=== PATIENT | male | born 1960 | race Caucasian/White ===

== ENCOUNTER → 2016-10-15 | Outpatient (CLI) | payer BC ==
[~2016-10-15] MED LIST: ASPIR-LOW81 MG PO; COZAAR 25MG TAB25 MG GT; COZAAR 25MG TAB25 MG PO; LIPITOR TAB 2020 MG PO; METOPROLOL SUCC25 MG PO; PLAVIX 75 MG TA75 MG PO; TYLENOL325 MG PO
== END ==
LOC: HEART 5 08:00
DX: I25.10 Atherosclerotic heart disease of native coronary artery without angina pectoris (principal)
CPT/HCPCS: 78452; A9502; J2785

== ENCOUNTER → 2016-10-19 | Outpatient (CLI) | payer BC | LOC: CARD REHAB 11:00 | DX: Z48.812 Encounter for surgical aftercare following surgery on the circulatory system (principal) ==

== ENCOUNTER 2020-09-13 15:16 | Emergency (ER) | payer BC, OTHER ==
[~2020-09-13 15:16] MED LIST changes: +ASPIRIN81 MG PO; +BUSPIRONE HCL5 MG PO; +COLCHICINE 0.60.6 MG PO; +COLCHICINE0.6 MG PO; +COZAAR25 MG PO; +LIPITOR20 MG PO; +NITROSTAT0.4 MG SL; +TOPROL XL 25 MG25 MG PO; +VITAMIN D31250 MCG PO; +ZYLOPRIM 300 M300 MG PO
[2020-09-13] MEDS ORDERED: CYCLOBENZAPRINE5 MG PO (19:46)
[2020-09-13] MEDS ORDERED: IBUPROFEN800 MG PO (19:46)
== END 2020-09-13 20:48 | disposition home or self-care (01) ==
LOC: ER1 15:16
DX: M25.552 Pain in left hip (principal); M54.5 Low back pain; I25.2 Old myocardial infarction; I10 Essential (primary) hypertension; Z88.0 Allergy status to penicillin; Z88.2 Allergy status to sulfonamides; Z88.1 Allergy status to other antibiotic agents; Z79.899 Other long term (current) drug therapy
CPT/HCPCS: 72131; 73502; 96372; 99284; J1885

== ENCOUNTER 2021-04-01 14:51 | Inpatient (IN) | payer BC ==
[~2021-04-01] VITALS: Ht 185.4 cm; Wt 113.4 kg
[~2021-04-01 14:51] MED LIST changes: -ASPIRIN81 MG PO; +CYCLOBENZAPRINE5 MG PO; +IBUPROFEN800 MG PO; -NITROSTAT0.4 MG SL; -TOPROL XL 25 MG25 MG PO; -VITAMIN D31250 MCG PO
[2021-04-01 16:46] LABS: HEMOGLOBIN 12.2 gm/dl (14.0-17.5); RED BLOOD COUNT 4.07 M/UL (4.20-5.50); WHITE BLOOD COUNT 11.6 K/UL (4.5-11.0)
[2021-04-01 17:36] LABS: BUN/CREATININE RATIO 15 (0-10)
[2021-04-02 04:27] LABS: HEMOGLOBIN 10.8 gm/dl (14.0-17.5)
[2021-04-02 04:50] LABS: BUN/CREATININE RATIO 17 (0-10); RED BLOOD COUNT 3.64 M/UL (4.20-5.50); WHITE BLOOD COUNT 5.7 K/UL (4.5-11.0)
[2021-04-02] MEDS ORDERED: ASPIRIN81 MG PO (06:33)
[2021-04-02] MEDS ORDERED: METOPROLOL TART25 MG PO (06:34)
[2021-04-02] MEDS ORDERED: VITAMIN D31250 MCG PO (10:33)
[2021-04-02] MEDS ORDERED: NITROSTAT0.4 MG SL (10:34)
[2021-04-02] MEDS ORDERED: CRESTOR40 MG PO (12:15)
[2021-04-02] MEDS ORDERED: IBU800 MG PO (12:16)
[2021-04-03 07:33] LABS: HEMOGLOBIN 11.2 gm/dl (14.0-17.5); RED BLOOD COUNT 3.8 M/UL (4.20-5.50)
[2021-04-03 07:45] LABS: WHITE BLOOD COUNT 4.1 K/UL (4.5-11.0)
[2021-04-03 07:50] LABS: BUN/CREATININE RATIO 18 (0-10)
[2021-04-04 04:30] LABS: HEMOGLOBIN 10.4 gm/dl (14.0-17.5); RED BLOOD COUNT 3.58 M/UL (4.20-5.50); WHITE BLOOD COUNT 3.9 K/UL (4.5-11.0)
[2021-04-04 05:00] LABS: BUN/CREATININE RATIO 15 (0-10)
[2021-04-05 09:34] LABS: RED BLOOD COUNT 4.54 M/UL (4.20-5.50); WHITE BLOOD COUNT 5.1 K/UL (4.5-11.0)
[2021-04-05 09:35] LABS: HEMOGLOBIN 12.5 gm/dl (14.0-17.5)
[2021-04-05 09:58] LABS: BUN/CREATININE RATIO 11 (0-10)
[2021-04-05] MEDS ORDERED: FLAGYL500 MG PO (10:30)
[2021-04-05] MEDS ORDERED: LEVOFLOXACIN500 MG PO (10:30)
== END 2021-04-05 16:25 | disposition home or self-care (01) | DRG 871 ==
LOC: ER1 14:51 → CDU 21:38 → MED SURG 4 21:38
PROVIDERS: Internal Medicine; Physician Assistant Medical; ADMIT Internal Medicine
DX: A41.9 Sepsis, unspecified organism (principal); J96.01 Acute respiratory failure with hypoxia; A09 Infectious gastroenteritis and colitis, unspecified; C18.7 Malignant neoplasm of sigmoid colon; K57.32 Diverticulitis of large intestine without perforation or abscess without bleeding; Z20.822 Contact with and (suspected) exposure to COVID-19; E66.9 Obesity, unspecified; Z96.642 Presence of left artificial hip joint; E78.5 Hyperlipidemia, unspecified; I11.9 Hypertensive heart disease without heart failure; I25.10 Atherosclerotic heart disease of native coronary artery without angina pectoris; Z95.5 Presence of coronary angioplasty implant and graft; Z79.01 Long term (current) use of anticoagulants; Z79.82 Long term (current) use of aspirin; Z88.0 Allergy status to penicillin; Z88.1 Allergy status to other antibiotic agents; Z88.2 Allergy status to sulfonamides; Z68.32 Body mass index [BMI] 32.0-32.9, adult
CPT/HCPCS: 36415; 80048; 80053; 81001; 83605; 83735; 85025; 85027; 87040; 93005; 96374; 96375; 99285; C9113; G0378; J1335; J1650; J1956; J2270; J2405; J7030; Q9967; U0002

== ENCOUNTER → 2021-04-28 | Outpatient (CLI) | payer BC ==
[~2021-04-28] MED LIST changes: +ASPIRIN81 MG PO; +CRESTOR40 MG PO; +FLAGYL500 MG PO; +IBU800 MG PO; +LEVOFLOXACIN500 MG PO; +METOPROLOL TART25 MG PO; +NITROSTAT0.4 MG SL; +VITAMIN D31250 MCG PO
== END ==
LOC: EXRD 12:48
DX: R10.13 Epigastric pain (principal); K59.00 Constipation, unspecified
CPT/HCPCS: 74019

== ENCOUNTER → 2021-05-07 | Outpatient (CLI) | payer BC ==
[2021-05-07 14:06] LABS: HEMOGLOBIN 10.6 gm/dl (14.0-17.5); RED BLOOD COUNT 3.89 M/UL (4.20-5.50); WHITE BLOOD COUNT 6.6 K/UL (4.5-11.0)
[2021-05-07 14:31] LABS: BUN/CREATININE RATIO 24 (0-10)
== END ==
LOC: LAB 12:27
PROVIDERS: Internal Medicine Gastroenterology
DX: Z00.00 Encounter for general adult medical examination without abnormal findings (principal); D64.9 Anemia, unspecified; A04.1 Enterotoxigenic Escherichia coli infection
CPT/HCPCS: 36415; 80053; 82728; 83540; 84100; 84134; 85025

== ENCOUNTER 2021-05-12 15:16 | Inpatient (IN) | payer BC ==
[~2021-05-12] VITALS: Ht 182.9 cm; Wt 92.5 kg
[2021-05-12 15:59] LABS: RED BLOOD COUNT 3.34 M/UL (4.20-5.50); WHITE BLOOD COUNT 4.8 K/UL (4.5-11.0)
[2021-05-12 16:21] LABS: BUN/CREATININE RATIO 25 (0-10)
[2021-05-12] MEDS ORDERED: APRISO0.375 GM PO (16:45)
[2021-05-12] MEDS ORDERED: ASPIRIN81 MG PO (16:46)
[2021-05-13 06:32] LABS: HEMOGLOBIN 7.5 gm/dl (14.0-17.5)
[2021-05-13 06:36] LABS: RED BLOOD COUNT 2.84 M/UL (4.20-5.50); WHITE BLOOD COUNT 3.2 K/UL (4.5-11.0)
--- NOTE | 2021-05-13 22:56 | NUR ---
PT STATED PAIN, ORDER FOR MED OBTAINED VIA DR. JULIEN, SEE PROVIDER NOTE. WHEN ATTEMPTING TO ADMINISTER MED, PT REFUSED. ALL 4 MG OF MORPHINE WASTED AND WITNESSED BY AMY VILA RN.
[2021-05-14 04:00] LABS: RED BLOOD COUNT 4.14 M/UL (4.20-5.50)
[2021-05-14 04:33] LABS: BUN/CREATININE RATIO 21 (0-10)
[2021-05-15 09:00] LABS: HEMOGLOBIN 9.7 gm/dl (14.0-17.5)
[2021-05-15 09:03] LABS: RED BLOOD COUNT 3.61 M/UL (4.20-5.50); WHITE BLOOD COUNT 10.9 K/UL (4.5-11.0)
[2021-05-15 09:19] LABS: BUN/CREATININE RATIO 26 (0-10)
--- NOTE | 2021-05-16 00:32 | NUR ---
DR. JULIEN NOTIFIED OF EMESIS THAT WAS PROJECTILE IN NATURE AND APPEARED TO BE BILE-LIKE. SEE PROVIDER NOTE FOR MORE INFO. 16 FR NG TUBE ATTEMPTED TO EACH NOSTRIL WITH NO SUCCESS. PT DID NOT TOLERATE WELL. 10 FR TUBE PLACED TO RIGHT NARE WITH MINIMAL DIFFICULTY. PT STATES RELIEVED PRESSURE IN STOMACH WITH NO MORE ISSUES NOTED ATT. WCTM
[2021-05-16 08:58] LABS: BUN/CREATININE RATIO 33 (0-10)
--- NOTE | 2021-05-22 10:18 | NUR ---
RECEIVED ORDERS FROM TERRENCE JULIEN TO PLACE WOUND VAC BLACK FOAM AT 120 SUCTION
--- NOTE | 2021-05-22 14:41 | NUR ---
wound vac placed with black foam at 120 suction
[2021-05-23 11:10] LABS: HEMOGLOBIN 10.1 gm/dl (14.0-17.5); RED BLOOD COUNT 3.78 M/UL (4.20-5.50); WHITE BLOOD COUNT 15.1 K/UL (4.5-11.0)
--- NOTE | 2021-05-23 12:20 | NUR ---
contacted provider solitario rodriguez about increased output in patient woundvac at 1000 and suspicion for low blood count with serosanginous drainage at 350ml since placement yesterday 05/22/21 at 1400. at this time dr. rodriguez is not concerned and explained to me he feels the patient is doing well this morning on his rounds and the physiology of his current condition. no further orders at this time. Called back at a later time around 1045 with patient complaints of dizzy, cold sweats, pallor with serosanginous drinage in woundvac. vitals signs were obtained 80/61 with heart rate of 130. patient was weak at this time and unable to ambulate. orders received to stop dvt prophylaxis, change woundvac settings to 100 intermittent suction and give saline over one hour after the ordered cbc results.
[2021-05-24 10:12] LABS: HEMOGLOBIN 9.5 gm/dl (14.0-17.5); RED BLOOD COUNT 3.53 M/UL (4.20-5.50)
[2021-05-24 10:13] LABS: WHITE BLOOD COUNT 10.1 K/UL (4.5-11.0)
[2021-05-24 10:54] LABS: BUN/CREATININE RATIO 22 (0-10)
[2021-05-29 08:33] LABS: HEMOGLOBIN 8.3 gm/dl (14.0-17.5); RED BLOOD COUNT 3.24 M/UL (4.20-5.50); WHITE BLOOD COUNT 6.3 K/UL (4.5-11.0)
== END 2021-05-30 14:33 | disposition home health service (06) | DRG 330 ==
LOC: M/S 15:16
PROVIDERS: Surgery; ADMIT Surgery
PROC: 30233L1 Transfusion of Nonautologous Fresh Plasma into Peripheral Vein, Percutaneous Approach (ICD-10-PCS; 2021-05-12)
PROC: 30233N1 Transfusion of Nonautologous Red Blood Cells into Peripheral Vein, Percutaneous Approach (ICD-10-PCS; 2021-05-12)
PROC: 0D1L0Z4 Bypass Transverse Colon to Cutaneous, Open Approach (ICD-10-PCS; 2021-05-13)
PROC: 0DTE0ZZ Resection of Large Intestine, Open Approach (ICD-10-PCS; principal; 2021-05-13 12:00)
DX: K51.818 Other ulcerative colitis with other complication (principal); K56.7 Ileus, unspecified; Z20.822 Contact with and (suspected) exposure to COVID-19; Z96.643 Presence of artificial hip joint, bilateral; M10.9 Gout, unspecified; D64.9 Anemia, unspecified; I10 Essential (primary) hypertension; I25.10 Atherosclerotic heart disease of native coronary artery without angina pectoris; F17.210 Nicotine dependence, cigarettes, uncomplicated; Z93.2 Ileostomy status; I25.2 Old myocardial infarction; Z95.5 Presence of coronary angioplasty implant and graft; Z88.1 Allergy status to other antibiotic agents; Z88.0 Allergy status to penicillin; Z88.2 Allergy status to sulfonamides; Z88.8 Allergy status to other drugs, medicaments and biological substances; Z79.01 Long term (current) use of anticoagulants; Z79.899 Other long term (current) drug therapy
CPT/HCPCS: 36415; 36430; 71045; 80048; 80053; 82962; 83735; 84132; 85007; 85018; 85025; 85027; 86850; 86900; 86901; 86920; 86927; 93005; 97110-GP-CQ; 97116; 97116-GP-CQ; 97161; 97530; 97530-GP-CQ; C9113; J1100; J1170; J1650; J1956; J2250; J2270; J2370; J2405; J2550; J2704; J2710; J2795; J3010; J7030; J7120; P9016; P9017; U0002

== ENCOUNTER 2021-06-04 15:40 | Inpatient (IN) | payer BC ==
[~2021-06-04] VITALS: Ht 182.9 cm; Wt 93.0 kg
[~2021-06-04 15:40] MED LIST changes: +APRISO0.375 GM PO
[2021-06-04 19:03] LABS: HEMOGLOBIN 9.1 gm/dl (14.0-17.5); RED BLOOD COUNT 3.56 M/UL (4.20-5.50); WHITE BLOOD COUNT 12.7 K/UL (4.5-11.0)
[2021-06-04 19:23] LABS: BUN/CREATININE RATIO 19 (0-10)
--- NOTE | 2021-06-07 23:43 | NUR ---
CORRECTION TO LABS AND TYLENOL PREVIOUSLY ORDERED ON THIS SHIFT: ORDERING PROVIDER WAS BON SANCHEZ, SURGEON.
[2021-06-08 07:40] LABS: HEMOGLOBIN 7.1 gm/dl (14.0-17.5); RED BLOOD COUNT 2.81 M/UL (4.20-5.50); WHITE BLOOD COUNT 8.8 K/UL (4.5-11.0)
[2021-06-08 07:42] LABS: BUN/CREATININE RATIO 19 (0-10)
[2021-06-09 15:12] LABS: HEMOGLOBIN 7.4 gm/dl (14.0-17.5); RED BLOOD COUNT 2.79 M/UL (4.20-5.50); WHITE BLOOD COUNT 7.4 K/UL (4.5-11.0)
[2021-06-10 07:13] LABS: HEMOGLOBIN 7.2 gm/dl (14.0-17.5); RED BLOOD COUNT 2.78 M/UL (4.20-5.50)
[2021-06-10 07:29] LABS: BUN/CREATININE RATIO 18 (0-10)
== END 2021-06-10 13:20 | disposition home health service (06) | DRG 862 ==
LOC: MED SURG 4 15:40
PROVIDERS: Nurse Practitioner Pediatrics; ADMIT Surgery
PROC: 0W9G30Z Drainage of Peritoneal Cavity with Drainage Device, Percutaneous Approach (ICD-10-PCS; principal; 2021-06-05 17:40)
DX: T81.42XA Infection following a procedure, deep incisional surgical site, initial encounter (principal); K65.1 Peritoneal abscess; T81.32XA Disruption of internal operation (surgical) wound, not elsewhere classified, initial encounter; Z20.822 Contact with and (suspected) exposure to COVID-19; Y83.8 Other surgical procedures as the cause of abnormal reaction of the patient, or of later complication, without mention of misadventure at the time of the procedure; D64.9 Anemia, unspecified; E66.9 Obesity, unspecified; I25.10 Atherosclerotic heart disease of native coronary artery without angina pectoris; I10 Essential (primary) hypertension; E78.5 Hyperlipidemia, unspecified; Z93.2 Ileostomy status; Z95.5 Presence of coronary angioplasty implant and graft; Z68.27 Body mass index [BMI] 27.0-27.9, adult
CPT/HCPCS: 80048; 80053; 85027; 86850; 86900; 86901; 87040; 94760; J1100; J1650; J1956; J2001; J2250; J2270; J2405; J2704; J3010; J7030; J7120; U0002

== ENCOUNTER 2021-06-23 15:49 | Inpatient (IN) | payer BC ==
[~2021-06-23] VITALS: Ht 182.9 cm; Wt 92.5 kg
[2021-06-23 16:28] LABS: HEMOGLOBIN 8.2 gm/dl (14.0-17.5); RED BLOOD COUNT 3.09 M/UL (4.20-5.50); WHITE BLOOD COUNT 10.3 K/UL (4.5-11.0)
[2021-06-23 16:52] LABS: BUN/CREATININE RATIO 28 (0-10)
--- NOTE | 2021-06-25 15:40 | NUR ---
PT. STATES DIDN'T EAT HIS LUNCH DUE TO DR. BRAGG STATING THE RADIOLOGIST MIGHT ASPIRATE FLUID FROM RIGHT SIDE TODAY. I NOTIFIED DR. BRAGG TO SEE IF AND WHAT PROCEDURE WOULD BE DONE AND WHEN. DR. BRAGG STATES HE HAD CHECKED EARLIER WITH RADIOLOGIST TO SEE IF SHE WOULD BE ABLE TO DO IT TODAY AND DR. BRAGG TOLD ME TO CALL RADIOLOGIST TO SEE IF COULD BE DONE. I NOTIFIED RADIOLOGIST DR. GOKUL BULLOCK AND SHE STATES NOTHING WAS EVER ORDERED TO BE DONE, SHE STATES SHE NORMALLY THE TECH COMES AND GETS HER WHEN PROCEDURE IS READY TO BE DONE AND SHE THOUGHT MAYBE DR BRAGG WASN'T AWARE SHE NEEDED AN ORDER. DR. GOKUL BULLOCK STATES IT IS TOO LATE IN THE DAY AND CAN'T BE DONE TODAY AND WON'T BE DONE TOMORROW EITHER DUE TO HOLIDAY AND PROBABLY CAN'T BE DONE WEDNESDAY EITHER. I CALLED DR. BRAGG WITH THIS INFORMATION AND TOLD HIM WHAT DR. GOKUL BULLOCK STATED.
--- NOTE | 2021-06-28 06:36 | NUR ---
On 06/27/21 lab called asking about a bodily fluid specimen STO sheet. They reported they had the fluid, but that they lacked the STO order to know what to run for the specimen. Doctor stated that he had acquired everything he needed already and that he no longer needed the specimen. This information was communicated to the lab personnel and they determined the best action was to discard the specimen.
[2021-06-29 08:17] LABS: HEMOGLOBIN 8.9 gm/dl (14.0-17.5); RED BLOOD COUNT 3.5 M/UL (4.20-5.50); WHITE BLOOD COUNT 4.3 K/UL (4.5-11.0)
[2021-06-29 08:52] LABS: BUN/CREATININE RATIO 28 (0-10)
--- NOTE | 2021-07-01 14:21 | NUR ---
Pat's temp 99.7 - called and notified Dr. Gao, orders for Tylenol prn for temp greater than 100...ok to give now. Patient denies any further complaints at this time
[2021-07-05 09:54] LABS: BUN/CREATININE RATIO 23 (0-10)
--- NOTE | 2021-07-08 15:32 | NUR ---
WOUND CARE PERFORMED PER MD ORDER. NO DRAINAGE OR PUS NOTED TO WOUND BED. CLEAN, PINK, GRANULATION TISSUE COVERING 100% OF WOUND. PATIENT TOLERATED WELL.
--- NOTE | 2021-07-09 15:15 | NUR ---
REPORT CALLED TO [facility] GIVEN TO CHIP.
== END 2021-07-09 15:30 | DRG 862 ==
LOC: M/S 15:49
PROVIDERS: Surgery; ADMIT Surgery
PROC: 0W9H3ZZ Drainage of Retroperitoneum, Percutaneous Approach (ICD-10-PCS; principal; 2021-06-25)
PROC: 8E0ZXY6 Isolation (ICD-10-PCS; 2021-06-30)
DX: T81.43XA Infection following a procedure, organ and space surgical site, initial encounter (principal); K65.1 Peritoneal abscess; U07.1 COVID-19; Z96.649 Presence of unspecified artificial hip joint; I25.10 Atherosclerotic heart disease of native coronary artery without angina pectoris; I25.2 Old myocardial infarction; Z79.82 Long term (current) use of aspirin; Z79.1 Long term (current) use of non-steroidal anti-inflammatories (NSAID); Z79.899 Other long term (current) drug therapy
CPT/HCPCS: 36415; 80048; 80053; 85025; 85027; 87070; 87077; 87186; 87205; 97110-GP-CQ; 97116-GP-CQ; 97163; 97530; 97530-GP-CQ; J1335; J2405; Q9967; U0002

== ENCOUNTER → 2021-11-10 | Outpatient (CLI) | payer BC | LOC: OPSV2 09:00 | PROVIDERS: Surgery | DX: Z01.812 Encounter for preprocedural laboratory examination (principal) | CPT/HCPCS: 36415; 80048 ==

== ENCOUNTER → 2021-11-27 | Outpatient (CLI) | payer BC | LOC: KOH-I 13:03 | DX: N17.9 Acute kidney failure, unspecified (principal); N28.9 Disorder of kidney and ureter, unspecified; K76.0 Fatty (change of) liver, not elsewhere classified | CPT/HCPCS: 76775 ==

== ENCOUNTER 2021-12-10 17:16 | Emergency (ER) | payer BC ==
[2021-12-10 20:15] LABS: HEMOGLOBIN 13.2 gm/dl (14.0-17.5); RED BLOOD COUNT 4.06 M/UL (4.20-5.50); WHITE BLOOD COUNT 5.8 K/UL (4.5-11.0)
== END 2021-12-10 22:45 | disposition home or self-care (01) ==
LOC: ER1 17:16
PROVIDERS: Family Medicine
DX: K62.89 Other specified diseases of anus and rectum (principal); Z93.3 Colostomy status; Z86.19 Personal history of other infectious and parasitic diseases; Z88.0 Allergy status to penicillin; Z88.2 Allergy status to sulfonamides; Z88.1 Allergy status to other antibiotic agents
CPT/HCPCS: 80053; 83605; 83690; 85025; 99284